=== PATIENT | male | born 1950 | race Caucasian/White ===

== ENCOUNTER 2018-01-05 12:12 | Emergency (ER) | payer OTHER ==
[2018-01-05] MEDS ORDERED: ONDANSETRON ODT 4 MG TABLET TL STA (12:55)
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
[2018-01-05 14:24] VITALS: BP 126/74
== END 2018-01-05 14:22 | disposition home or self-care (01) ==
LOC: ED 12:12
DX: B34.9 Viral infection, unspecified (principal); S09.90XA Unspecified injury of head, initial encounter; V89.2XXA Person injured in unspecified motor-vehicle accident, traffic, initial encounter; Z79.82 Long term (current) use of aspirin
CPT/HCPCS: 70450; 87275; 87276; 93005; 99283; 99284; Q0162

== ENCOUNTER 2022-02-27 18:04 | Outpatient (CLI) | payer MEDICARE | END 2022-02-27 18:05 | disposition short-term general hospital (02) | LOC: EMS 18:04 | DX: R07.89 Other chest pain (principal); R11.0 Nausea; R42 Dizziness and giddiness; R06.09 Other forms of dyspnea | CPT/HCPCS: A0425; A0429 ==

== ENCOUNTER 2023-02-16 21:28 | Emergency (ER) | payer MEDICARE, OTHER ==
[2023-02-16 21:42] VITALS: BP 150/78
[2023-02-16] MEDS ORDERED: MOLNUPIRAVIR PREPACK PO STA (22:07)
--- NOTE | 2023-02-16 22:10 | ED Physician Documentation ---
PD HPI URI - Stated complaint Stated Complaint: C+?/COUGHING/FEVER - Chief complaint Chief Complaint: Resp - History obtained from History obtained from: Patient - History of Present Illness Timing - onset: How many days ago (2) Timing duration: Days (2) Timing details: Gradual onset Associated symptoms: Fever, Nasal congestion, Rhinorrhea, Dry cough - Additional information Additional information: Patient is a 72-year-old male who presents to the emergency department with cough for the past 2 days. Had a fever yesterday. Nasal congestion, rhinorrhea. He tested himself at home twice and is positive for COVID. He has had his vaccination and booster. He contacted the nurse advice line today who stated he should go to the emergency department. He is not having any shortness of breath or difficulty breathing. No chest pain. No nausea or vomiting. Otherwise asymptomatic Review of Systems Respiratory: denies: Dyspnea, Wheezing GI: denies: Vomiting, Diarrhea Skin: denies: Rash PD PAST MEDICAL HISTORY - Past Medical History Past Medical History: Yes Cardiovascular: Coronary artery disease - Past Surgical History Past Surgical History: Yes Ortho: Rotator cuff repair, Other - Present Medications Home Medications: Ambulatory Orders Medication Instructions Recorded Confirmed Aspirin [Adult Aspirin Regimen] 1 tab PO DAILY 01/05/18 - Allergies Allergies/Adverse Reactions: Allergies Allergy/AdvReac Type Severity Reaction Status Date / Time No Known Drug Allergies Allergy Verified 02/16/23 21:42 - Living Situation Living Arrangement: reports: At home - Social History Does the pt smoke?: No Smoking Status: Never smoker Does the pt drink ETOH?: Yes Does the pt have substance abuse?: No - Immunizations Immunizations are current?: Yes PD ED PE NORMAL - Vitals Vital signs reviewed: Yes - General General: Alert and oriented X 3, No acute distress - HEENT HEENT: Moist mucous membranes, Pharynx benign, Other (Hearing aids in the bilateral ears) - Neck Neck: Supple, no meningeal sign - Cardiac Cardiac: RRR, Strong equal pulses - Respiratory Respiratory: No respiratory distress, Clear bilaterally - Abdomen Abdomen: Soft, Non tender, Non distended - Derm Derm: Warm and dry - Extremities Extremities: No edema, No calf tenderness / cord - Neuro Neuro: Alert and oriented X 3 Results - Vitals Vitals: Vital Signs - 24 hr 02/16/23 21:35 Temperature 37.6 C Heart Rate 96 Respiratory 18 Rate Blood Pressure 150/78 H O2 Saturation 96 Oxygen O2 Source Room air PD Medical Decision Making - ED course Complexity details: considered differential, d/w patient ED course: Patient is well-appearing, nontoxic. No hypoxia. No respiratory distress. Lungs are clear to auscultation bilaterally. No indication for emergent x-ray. Discussed antiviral therapy and he would like to try antiviral therapy, he is on multiple medications that interact with Paxlovid, therefore molnupiravir will be used. He is fully COVID vaccinated. Patient counseled regarding signs and symptoms for which I believe and urgent re-evaluation would be necessary. Patient with good understanding of and agreement to plan and is comfortable going home at this time This document was made in part using voice recognition software. While efforts are made to proofread this document, sound alike and grammatical errors may occur. Departure - Departure Disposition: 01 Home, Self Care Clinical Impression: COVID-19 Condition: Good Instructions: ED Viral Syndrome Follow-Up: your,doctor in 1 week if not better [Other] Comments: Please follow-up with your doctor for further care. Please return if you worsen including difficulty breathing or other worsening symptoms. You were given molnupiravir tonight, this is an antiviral therapy for COVID.
--- OUTSIDE RECORDS SUMMARY | 2023-02-16 22:19 | EXTERNAL MEDICAL SUMMARY RPT | Continuity of Care Document ---
:1950 Author Organization [place] Address [address] [place] [address] Phone Care Team Providers Name Role Phone [place] Patient Registrar, Carrie Benito Unav ailable Allergies No information. Encounters No information. Functional Status No information. Immunizations No information. Medications date description facility 2022-11-28 00:00 metoprolol succinate [facility] 2022-11-28 00:00 amlodipine [facility] 2022-11-28 00:00 amlodipine [facility] 2022-11-28 00:00 clopidogrel [facility] 2022-11-28 00:00 pantoprazole [facility] 2022-11-28 00:00 metoprolol succinate [facility] 2022-11-28 00:00 amlodipine [facility] 2022-11-28 00:00 losartan [facility] 2022-11-28 00:00 atorvastatin [facility] 2022-11-28 00:00 losartan [facility] 2022-11-28 00:00 atorvastatin [facility] 2022-11-28 00:00 pantoprazole [facility] 2022-11-28 00:00 clopidogrel [facility] 2022-11-28 00:00 aspirin [facility] 2022-11-28 00:00 amlodipine [facility] 2022-11-28 00:00 clopidogrel [facility] 2022-11-28 00:00 pantoprazole [facility] 2022-11-28 00:00 [facility]:00 pantoprazole [facility] 2022-11-28 00:00 atorvastatin [facility] 2022-11-28 00:00 losartan [facility] [place] [facility] 2022-11-28 00:00 metoprolol succinate [facility] 2022-11-28 00:00 [facility] 2022-11-28 00:00 metoprolol succinate [facility] 2022-11-28 00:00 losartan [facility] Problems No information. Procedures No information. Results/Labs No information. Social History No information. Vital Signs No information.
== END 2023-02-16 22:18 | disposition home or self-care (01) ==
LOC: ED 21:28
DX: U07.1 COVID-19 (principal); I25.10 Atherosclerotic heart disease of native coronary artery without angina pectoris; Z79.82 Long term (current) use of aspirin
CPT/HCPCS: 99282; 99283; J3490

== ENCOUNTER 2024-04-24 08:00 | Outpatient (CLI) | payer MEDICARE ==
--- NOTE | 2024-04-24 09:27 | XRAY Report ---
PROCEDURE: Abdomen 2 V INDICATIONS: ABDOMINAL PAIN RIGHT SIDE TECHNIQUE: 2 views of the abdomen were acquired. COMPARISON: None. FINDINGS: Surgical changes and devices: None. Bowel: No pneumoperitoneum. The bowel gas pattern is normal. Stool load within normal limits. Soft tissues: No masses; visualized solid organ contours appear normal in size. No suspicious abdom inal calcifications. Bones: No suspicious bony abnormalities. Minor levoscoliosis of the lumbar spine. Degenerative scle rosis at the pubic symphysis. IMPRESSION: Nonspecific, nonobstructive bowel gas pattern. Reviewed by: Windy Saldaña MD on 04/24/2024 9:26 AM PDT Approved by: Windy Saldaña MD on 04/24/2024 9:26 AM PDT Station ID: [id number]
== END 2024-04-24 23:59 | disposition home or self-care (01) ==
LOC: DI.S 08:00
PROVIDERS: ATTEND Registered Nurse
DX: R10.9 Unspecified abdominal pain (principal)